=== PATIENT | female | born 1985 | race African-American/Black ===

== ENCOUNTER 2019-04-08 05:47 | Observation (INO) | payer OTHER ==
[~2019-04-08] VITALS: Ht 165.1 cm; Wt 88.0 kg
[2019-04-08] VITALS (12 sets, daily range): BP systolic 99–130; BP diastolic 49–79
[2019-04-08] MEDS ORDERED: SERT100T PO (06:20)
[2019-04-08] MEDS ORDERED: SUMA100T4 PO (06:23)
[2019-04-08] MEDS ORDERED: VALA500T9 PO (06:23)
[2019-04-08] MEDS ORDERED: ONDANSETRON PF 4 MG/2 ML VIAL. IV PRN (07:00)
[2019-04-08] MEDS ORDERED: PROCHLORPERAZINE 10 MG/2 ML VIAL. IV PRN (07:00)
[2019-04-08] MEDS ORDERED: HYDROmorphone 2 MG/ML VIAL IV PRN (07:00)
[2019-04-08] MEDS ORDERED: IV RINGERS,LACTATED 1000ML 1,000 ML IV SCH (07:00)
[2019-04-08] MEDS ORDERED: fentaNYL PF VIAL 100 MCG/2 ML VIAL IV PRN ×2 (07:00)
[2019-04-08] MEDS ORDERED: MORPHINE SULFATE 2 MG/ML VIAL. IV PRN ×3 (07:00→09:30)
[2019-04-08 07:09] LABS: BASO # 0.1 x10^3/uL (0.0-0.2); BASO % 1 % (0-3); EOS # 0.4 x10^3/uL (0.0-0.7); EOS % 4 % (0-3); HEMATOCRIT 39.8 % (36.0-47.0); LYMPH # 5.1 x10^3/uL (1.0-4.8); LYMPH % 43 % (24-48); MEAN CORPUSCULAR HEMOGLOBIN 29 pg (25-35); MEAN CORPUSCULAR HGB CONC 33 g/dL (31-37); MEAN CORPUSCULAR VOLUME 90 fL (79-100); MONO # 0.8 x10^3/uL (0.0-1.1); MONO % 7 % (0-9); NEUT # 5.4 x10^3/uL (1.8-7.7); NEUT % 46 % (31-73); PLATELET COUNT 403 x10^3/uL (140-400); RED BLOOD COUNT 4.44 x10^6/uL (3.50-5.40); RED CELL DISTRIBUTION WIDTH 15.2 % (11.5-14.5); WHITE BLOOD COUNT 11.8 x10^3/uL (4.0-11.0)
[2019-04-08] MEDS ORDERED: ONDANSETRON PF 4 MG/2 ML VIAL. ONE (07:17)
[2019-04-08] MEDS ORDERED: fentaNYL PF VIAL 100 MCG/2 ML VIAL ONE ×2 (07:17→08:27)
[2019-04-08] MEDS ORDERED: LIDOCAINE 2% PF 5 ML VIAL. ONE (07:17)
[2019-04-08] MEDS ORDERED: PROPOFOL 20 ML IV ONE (07:17)
[2019-04-08] MEDS ORDERED: DEXAMETHASONE SOD PHOS 4 MG/ML VIAL ONE (07:17)
[2019-04-08] MEDS ORDERED: MIDAZOLAM HCL/PF 2 MG/2 ML VIAL. ONE (07:18)
[2019-04-08] MEDS ORDERED: ROCURONIUM 50 MG/5 ML VIAL. ONE (07:18)
[2019-04-08 07:22] LABS: CALCIUM 8.8 mg/dL (8.5-10.1); CREATININE 0.7 mg/dL (0.6-1.0); GFR 115.2
[2019-04-08] MEDS ORDERED: ceFAZolin 2GM PREMIX 2 GM/50 ML BAG IV ONE (08:00)
[2019-04-08] MEDS ORDERED: GLYCOPYRROLATE 1 MG/5 ML VIAL. ONE (08:06)
[2019-04-08] MEDS ORDERED: SEVOFLURANE > 120 MINUTES. IH ONE (08:46)
[2019-04-08] MEDS ORDERED: PHENYLEPHRINE in 0.9% NACL PF 1 MG/10 ML SYRINGE. IV ONE (08:46)
[2019-04-08] MEDS ORDERED: NEOSTIGMINE METHYLSULFATE 5 MG/5 ML SYRINGE. ONE (09:04)
[2019-04-08] MEDS ORDERED: KETOROLAC 30 MG/ML VIAL. ONE (09:18)
[2019-04-08] MEDS ORDERED: IV NORMAL SALINE 1000ML BAG 1,000 ML IV SCH (09:22)
[2019-04-08] MEDS ORDERED: IV DEXTROSE 5 %-0.45 % NACL 1,000 ML IV SCH (09:22)
[2019-04-08] MEDS ORDERED: DEXTROSE 50% 25 GM / 50ML DISP.SYRIN. IV PRN (09:30)
[2019-04-08] MEDS ORDERED: oxyCODONE/APAP 5/325 1 TAB TABLET PO PRN (09:30)
[2019-04-08] MEDS ORDERED: KETOROLAC 15 MG/ML VIAL. IV PRN (09:30)
[2019-04-08] MEDS ORDERED: diphenhydrAMINE HCL 25 MG CAPSULE PO PRN (09:30)
[2019-04-08] MEDS ORDERED: 0.9 % SODIUM CHLORIDE 10 ML DISP.SYRIN. IV PRN (09:30)
[2019-04-08] MEDS ORDERED: NALOXONE 0.4 MG/ML VIAL. IV PRN (09:30)
[2019-04-08] MEDS ORDERED: diphenhydrAMINE 50 MG/ML VIAL IV PRN (09:30)
--- NOTE | 2019-04-08 10:13 | PDOC4 ---
OPERATIVE NOTE: PreOp Dx: 1. Menorrhagia, 2. Dysmenorrhea, 3. Endometriosis, 4. PMS/PMDD, 5. Tob use PostOp Dx: same Procedure: LAVH/BS Surgeon: Cristina Rodas Anesthesia: GETA EBL: 300cc Fluids: 1500 UOP: 200 (clear) Complications: none Findings: Nml appearing tubes and ovaries. Small anterior fibroid in midline of uterus Path: Uterus, cervix, tubes SANDY RODAS MD Apr 08, 2019 10:12
--- NOTE | 2019-04-08 11:00 | NUR ---
Pt to room 305 per bed from PACU. Pt drowsy but oriented X4. Frequent VS started and assessment completed. Friend at bedside.
--- NOTE | 2019-04-08 11:20 | OP ---
DATE OF SURGERY: 04/08/2019 PREOPERATIVE DIAGNOSES: 1. Menorrhagia. 2. Dysmenorrhea. 3. Endometriosis. 4. PMSS/PMDD. 5. Tobacco use. POSTOPERATIVE DIAGNOSES: 1. Menorrhagia. 2. Dysmenorrhea. 3. Endometriosis. 4. PMSS/PMDD. 5. Tobacco use. PROCEDURE: Laparoscopic-assisted vaginal hysterectomy with bilateral salpingectomy. SURGEON: Elio Rodas MD ANESTHESIA: General endotracheal intubation. ESTIMATED BLOOD LOSS: 300 mL. FLUIDS: 1500. URINE OUTPUT: 200 mL, clear. COMPLICATIONS: None. FINDINGS: Normal appearing tubes and ovaries. A small anterior fibroid in the midline of the uterus. SPECIMENS: Uterus, cervix and tubes. DESCRIPTION OF PROCEDURE: The patient was taken to the operating room where general endotracheal intubation was obtained without difficulty. The patient was prepped and draped in normal sterile fashion. Attention was first turned to the vagina where speculum was placed to visualize the cervix. The anterior lip of the cervix was then grasped with a single tooth tenaculum. An Tool uterine manipulator was then placed into the uterine cavity. At that point, the speculum was removed. A Vega catheter was then placed in the patient's bladder. Attention was then turned to the abdomen where a 5 mm skin incision was made in the infraumbilical fold. At that point, a Veress needle was introduced into the abdominal cavity. The abdominal cavity was then insufflated to 15 mmHg. Once that had been sufficiently insufflated, the Veress needle was removed and a 5 mm trocar was then placed. Intra-abdominal placement was confirmed with the laparoscope. At that point, survey of the pelvis revealed relatively normal anatomy with the exception of a small fibroid on the anterior of the uterus. At that point, a second trocar was then placed on the left approximately two-thirds between her ischial spine and the umbilicus, first by making a 5 mm skin incision followed by placing the trocar under direct visualization of the laparoscope, attention was then turned to the right side where a 5 mm skin incision was placed approximately two-thirds between the ischial spine and the umbilicus. Once this had been made, a 5 mm trocar was then placed under direct visualization of the laparoscope. Attention was first turned to the left where the left tube was grasped at the level of the fimbria. The tube was then from the ovary with the LigaSure device until the level of the uterus, once the tube was from the ovary, LigaSure device was used to cut through the round ligament. The LigaSure device was then used to serially coagulate and cut the uterine pedicles to the level of the uterine artery. At that point, the peritoneum was undermined to allow for the creation of a bladder flap. The bladder flap was then brought to the midline. Additional bites were then taken of the uterine vessels with the LigaSure device. Attention was then turned to the right where again the tube was then grasped and followed out to the fimbria. The right tube was then from the ovary with the LigaSure device. Once this had been performed, the round ligament was then cut using the LigaSure device. The uterine pedicles on the right were then serially coagulated and cut with the LigaSure device to the level of the uterine arteries. At that point, the peritoneum was undermined to complete the bladder flap. Once this had been accomplished, a few additional bites were taken of the uterine vessels. Once good hemostasis was noted, all instruments were removed and attention was then turned to the vagina where the cervix was circumferentially cut with the Bovie device. At that point, the pubovesicocervical fascia was then dissected from the bladder with the Metzenbaum scissors. Once the anterior cul-de-sac had been entered, attention was then turned to the posterior cul-de-sac where Walker scissors were used to enter the peritoneum posteriorly. At that point, a Antonette clamp was used to grasp the left uterosacral ligament. This was then cut and tagged with 0 Vicryl. This was performed on the right side where the uterosacral ligament was then grasped with a Antonette clamp, cut and tagged. Once this had been performed, the uterus was serially clamped, cut and tied until all the pedicles were free. The uterus was then delivered. Once the uterus was delivered, good hemostasis was noted. The vaginal cuff was then closed by first making a [id number]-rd-[id number] stitch on the left lateral edge with the second pass including the left uterosacral ligament. This was tagged. Attention was then turned to the right side where a cdxbkl-vx-atkwr stitch was then placed at the lateral edge again including the right uterosacral ligament on the second pass. Two additional dikyfq-xi-eexsh stitches were used to close the remainder of the cuff. The cuff was irrigated. Good hemostasis was noted. All the stitches were cut. Attention was then returned to the abdomen once again where the abdomen was insufflated once again, survey of the vaginal cuff revealed good hemostasis. The ureters were then observed to be peristalsing. The pelvis was then irrigated. All instruments were removed as well as the trocar. The laparoscopic incisions were closed with 4-0 Monocryl. At that point, the patient tolerated the procedure well and was taken to the recovery room in stable condition. Sponges, laps and needles were correct x 3. ELIO RODAS MD DR: PURA/luigi JOB#: [id number] / [id number]
[2019-04-08] MEDS: oxyCODONE/APAP 5/325 1 TAB TABLET PO PRN ×2 (13:41→14:37)
[2019-04-08] MEDS: IBUPROFEN 200 MG TABLET. PO PRN (20:08)
[2019-04-08] MEDS: DOCUSATE SODIUM 100 MG CAPSULE. PO SCH (21:25)
[2019-04-09 02:25] VITALS: BP 100/57
[2019-04-09] MEDS: IBUPROFEN 200 MG TABLET. PO PRN (06:17)
[2019-04-09] MEDS: oxyCODONE/APAP 5/325 1 TAB TABLET PO PRN ×2 (06:17→10:38)
[2019-04-09 06:20] VITALS: BP 121/65
[2019-04-09 07:40] LABS: BASO % 0 % (0-3); EOS % 0 % (0-3); HEMATOCRIT 34.4 % (36.0-47.0); HEMOGLOBIN 11.4 g/dL (12.0-15.5); LYMPH # 3.7 x10^3/uL (1.0-4.8); LYMPH % 23 % (24-48); MEAN CORPUSCULAR HEMOGLOBIN 30 pg (25-35); MEAN CORPUSCULAR HGB CONC 33 g/dL (31-37); MEAN CORPUSCULAR VOLUME 89 fL (79-100); MONO # 1.3 x10^3/uL (0.0-1.1); MONO % 8 % (0-9); NEUT # 11.5 x10^3/uL (1.8-7.7); NEUT % 69 % (31-73); PLATELET COUNT 371 x10^3/uL (140-400); RED BLOOD COUNT 3.87 x10^6/uL (3.50-5.40); RED CELL DISTRIBUTION WIDTH 15.4 % (11.5-14.5); WHITE BLOOD COUNT 16.5 x10^3/uL (4.0-11.0)
[2019-04-09 08:06] LABS: CALCIUM 8.3 mg/dL (8.5-10.1); CREATININE 0.6 mg/dL (0.6-1.0); GFR 137.7; POTASSIUM 4.2 mmol/L (3.5-5.1)
--- NOTE | 2019-04-09 09:11 | DISCH ---
DISCHARGE INSTRUCTIONS Condition on Discharge Condition on Discharge: Stable Activity After Discharge Activity Instructions for Disc: Resume previous activity (No lifting greater than 20lbs. Pelvic rest for 6 weeks. No driving on narcotics. Call if: f/c, N/V, abd pain or any additional questions or concerns.) Follow-Up Follow up with: Dr. Rodas on 04/17/19 at 10:00 am SANDY RODAS MD Apr 09, 2019 09:11
[2019-04-09] MEDS ORDERED: OXYC1TAB15 PO (09:12)
[2019-04-09] MEDS ORDERED: IBUP-1060 PO (09:12)
[2019-04-09] MEDS ORDERED: DOCU-109 PO (09:12)
[2019-04-09] MEDS: DOCUSATE SODIUM 100 MG CAPSULE. PO SCH (09:26)
--- NOTE | 2019-04-09 09:30 | PDOC ---
PROGRESS NOTES Subjective Subjective Pt with good pain control. Aster PO. Voiding. Objective Objective Vital Signs Date Time Temp Pulse Resp B/P (MAP) Pulse Ox O2 Delivery O2 Flow Rate FiO2 04/09/19 07:20 18 Room Air 04/09/19 06:20 98.0 62 121/65 (83) 100 98.0 Intake and Output 04/09/19 07:00 Intake Total 3095 ml Output Total 1500 ml Balance 1595 ml Intake Oral 1040 ml IV Total 1550 ml Other 505 ml Output Urine Total 1200 ml Estimated Blood Loss 300 ml Physical Exam Physical Exam CTAB RRR S/NT/ND Inc: dressing dry no C/C/E Assessment Assessment A/P 33y POD #1 s/p LAVH/BS 1.) PO - doing well, path pending 2.) Hgb 13.0 -> 11.4 3.) H/o IBS 4.) Tob use - discussed cessation 5.) D/c home Comment Review of Relevant I have reviewed the following items felix (where applicable) has been applied. Labs Laboratory Tests Test 04/08/19 06:15 04/08/19 06:19 04/09/19 07:00 White Blood Count 11.8 x10^3/uL (4.0-11.0) 16.5 x10^3/uL (4.0-11.0) Red Blood Count 4.44 x10^6/uL (3.50-5.40) 3.87 x10^6/uL (3.50-5.40) Hemoglobin 13.0 g/dL (12.0-15.5) 11.4 g/dL (12.0-15.5) Hematocrit 39.8 % (36.0-47.0) 34.4 % (36.0-47.0) Mean Corpuscular Volume 90 fL (79-100) 89 fL (79-100) Mean Corpuscular Hemoglobin 29 pg (25-35) 30 pg (25-35) Mean Corpuscular Hemoglobin Concent 33 g/dL (31-37) 33 g/dL (31-37) Red Cell Distribution Width 15.2 % (11.5-14.5) 15.4 % (11.5-14.5) Platelet Count 403 x10^3/uL (140-400) 371 x10^3/uL (140-400) Neutrophils (%) (Auto) 46 % (31-73) 69 % (31-73) Lymphocytes (%) (Auto) 43 % (24-48) 23 % (24-48) Monocytes (%) (Auto) 7 % (0-9) 8 % (0-9) Eosinophils (%) (Auto) 4 % (0-3) 0 % (0-3) Basophils (%) (Auto) 1 % (0-3) 0 % (0-3) Neutrophils # (Auto) 5.4 x10^3/uL (1.8-7.7) 11.5 x10^3/uL (1.8-7.7) Lymphocytes # (Auto) 5.1 x10^3/uL (1.0-4.8) 3.7 x10^3/uL (1.0-4.8) Monocytes # (Auto) 0.8 x10^3/uL (0.0-1.1) 1.3 x10^3/uL (0.0-1.1) Eosinophils # (Auto) 0.4 x10^3/uL (0.0-0.7) 0.0 x10^3/uL (0.0-0.7) Basophils # (Auto) 0.1 x10^3/uL (0.0-0.2) 0.0 x10^3/uL (0.0-0.2) Sodium Level 143 mmol/L (136-145) 143 mmol/L (136-145) Potassium Level 4.0 mmol/L (3.5-5.1) 4.2 mmol/L (3.5-5.1) Chloride Level 106 mmol/L (98-107) 106 mmol/L (98-107) Carbon Dioxide Level 27 mmol/L (21-32) 29 mmol/L (21-32) Anion Gap 10 (6-14) 8 (6-14) Blood Urea Nitrogen 13 mg/dL (7-20) 5 mg/dL (7-20) Creatinine 0.7 mg/dL (0.6-1.0) 0.6 mg/dL (0.6-1.0) Estimated GFR (Cockcroft-Gault) 115.2 137.7 Glucose Level 100 mg/dL (70-99) 117 mg/dL (70-99) Calcium Level 8.8 mg/dL (8.5-10.1) 8.3 mg/dL (8.5-10.1) Bedside Urine HCG, Qualitative Hcg negative (Negative) Laboratory Tests Test 04/09/19 07:00 White Blood Count 16.5 x10^3/uL (4.0-11.0) Red Blood Count 3.87 x10^6/uL (3.50-5.40) Hemoglobin 11.4 g/dL (12.0-15.5) Hematocrit 34.4 % (36.0-47.0) Mean Corpuscular Volume 89 fL (79-100) Mean Corpuscular Hemoglobin 30 pg (25-35) Mean Corpuscular Hemoglobin Concent 33 g/dL (31-37) Red Cell Distribution Width 15.4 % (11.5-14.5) Platelet Count 371 x10^3/uL (140-400) Neutrophils (%) (Auto) 69 % (31-73) Lymphocytes (%) (Auto) 23 % (24-48) Monocytes (%) (Auto) 8 % (0-9) Eosinophils (%) (Auto) 0 % (0-3) Basophils (%) (Auto) 0 % (0-3) Neutrophils # (Auto) 11.5 x10^3/uL (1.8-7.7) Lymphocytes # (Auto) 3.7 x10^3/uL (1.0-4.8) Monocytes # (Auto) 1.3 x10^3/uL (0.0-1.1) Eosinophils # (Auto) 0.0 x10^3/uL (0.0-0.7) Basophils # (Auto) 0.0 x10^3/uL (0.0-0.2) Sodium Level 143 mmol/L (136-145) Potassium Level 4.2 mmol/L (3.5-5.1) Chloride Level 106 mmol/L (98-107) Carbon Dioxide Level 29 mmol/L (21-32) Anion Gap 8 (6-14) Blood Urea Nitrogen 5 mg/dL (7-20) Creatinine 0.6 mg/dL (0.6-1.0) Estimated GFR (Cockcroft-Gault) 137.7 Glucose Level 117 mg/dL (70-99) Calcium Level 8.3 mg/dL (8.5-10.1) Medications Current Medications Ondansetron HCl (Zofran) 4 mg PRN Q6HRS PRN IV NAUSEA/VOMITING; Start 04/08/19 at 07:00; Stop 04/08/19 at 20:00; Status DC Fentanyl Citrate (Fentanyl 2ml Vial) 25 mcg PRN Q5MIN PRN IV MILD PAIN 1-3; Start 04/08/19 at 07:00; Stop 04/08/19 at 20:00; Status DC Fentanyl Citrate (Fentanyl 2ml Vial) 50 mcg PRN Q5MIN PRN IV MODERATE TO SEVERE PAIN; Start 04/08/19 at 07:00; Stop 04/08/19 at 20:00; Status DC Morphine Sulfate (Morphine Sulfate) 1 mg PRN Q10MIN PRN IV SEVERE PAIN 7-10; Start 04/08/19 at 07:00; Stop 04/08/19 at 20:00; Status DC Ringer's Solution 1,000 ml @ 30 mls/hr Q24H IV Last administered on 04/08/19at 06:40; Start 04/08/19 at 07:00; Stop 04/08/19 at 18:59; Status DC Hydromorphone HCl (Dilaudid) 0.5 mg PRN Q10MIN PRN IV SEV PAIN, Second choice; Start 04/08/19 at 07:00; Stop 04/08/19 at 20:00; Status DC Prochlorperazine Edisylate (Compazine) 5 mg PACU PRN PRN IV NAUSEA, MRX1; Start 04/08/19 at 07:00; Stop 04/08/19 at 20:00; Status DC Cefazolin Sodium/ Dextrose 50 ml @ 100 mls/hr 1X PREOP PRN IV PRIOR TO PROCEDURE; Start 04/08/19 at 06:00; Stop 04/08/19 at 18:00; Status DC Propofol 20 ml @ As Directed STK-MED ONCE IV ; Start 04/08/19 at 07:17; Stop 04/08/19 at 07:17; Status DC Lidocaine HCl (Lidocaine Pf 2% Vial) 5 ml STK-MED ONCE .ROUTE ; Start 04/08/19 at 07:17; Stop 04/08/19 at 07:17; Status DC Ondansetron HCl (Zofran) 4 mg STK-MED ONCE .ROUTE ; Start 04/08/19 at 07:17; Stop 04/08/19 at 07:17; Status DC Dexamethasone Sodium Phosphate (Decadron) 4 mg STK-MED ONCE .ROUTE ; Start 04/08/19 at 07:17; Stop 04/08/19 at 07:17; Status DC Fentanyl Citrate (Fentanyl 2ml Vial) 100 mcg STK-MED ONCE .ROUTE ; Start 04/08/19 at 07:17; Stop 04/08/19 at 07:18; Status DC Midazolam HCl (Versed) 2 mg STK-MED ONCE .ROUTE ; Start 04/08/19 at 07:18; Stop 04/08/19 at 07:18; Status DC Rocuronium Anatone (Zemuron) 50 mg STK-MED ONCE .ROUTE ; Start 04/08/19 at 07:18; Stop 04/08/19 at 07:19; Status DC Glycopyrrolate (Robinul) 1 mg STK-MED ONCE .ROUTE ; Start 04/08/19 at 08:06; Stop 04/08/19 at 08:06; Status DC Fentanyl Citrate (Fentanyl 2ml Vial) 100 mcg STK-MED ONCE .ROUTE ; Start 04/08/19 at 08:27; Stop 04/08/19 at 08:27; Status DC Phenylephrine HCl (PHENYLEPHRINE in 0.9% NACL PF) 1 mg STK-MED ONCE IV ; Start 04/08/19 at 08:46; Stop 04/08/19 at 08:46; Status DC Sevoflurane (Ultane) 90 ml STK-MED ONCE IH ; Start 04/08/19 at 08:46; Stop 04/08/19 at 08:47; Status DC Neostigmine Anatone (Neostigmine Methylsulfate) 5 mg STK-MED ONCE .ROUTE ; Start 04/08/19 at 09:04; Stop 04/08/19 at 09:04; Status DC Ketorolac Tromethamine (Toradol 30mg Vial) 30 mg STK-MED ONCE .ROUTE ; Start 04/08/19 at 09:18; Stop 04/08/19 at 09:18; Status DC Diphenhydramine HCl (Benadryl) 25 mg PRN Q6HRS PRN PO ITCHING; Start 04/08/19 at 09:30 Diphenhydramine HCl (Benadryl) 25 mg PRN Q6HRS PRN IV ITCHING; Start 04/08/19 at 09:30 Sodium Chloride (Normal Saline Flush) 3 ml QSHIFT PRN IV AFTER MEDS AND BLOOD DRAWS; Start 04/08/19 at 09:30 Dextrose/Sodium Chloride 1,000 ml @ 100 mls/hr Q10H IV Last administered on 04/08/19at 14:46; Start 04/08/19 at 09:22 Dextrose (Dextrose 50%-Water Syringe) 12.5 gm PRN Q15MIN PRN IV SEE COMMENTS; Start 04/08/19 at 09:30 Oxycodone/ Acetaminophen (Percocet 5/325) 1 tab PRN Q4HRS PRN PO MILD PAIN, 1ST CHOICE Last administered on 04/09/19at 06:17; Start 04/08/19 at 09:30 Oxycodone/ Acetaminophen (Percocet 5/325) 2 tab PRN Q4HRS PRN PO MODERATE PAIN, SEVERE PAIN Last administered on 04/08/19at 20:08; Start 04/08/19 at 09:30 Ketorolac Tromethamine (Toradol 15mg Vial) 15 mg PRN Q6HRS PRN IV PAIN Last administered on 04/08/19at 11:30; Start 04/08/19 at 09:30; Stop 04/13/19 at 09:29 Ibuprofen (Motrin) 600 mg PRN Q8HRS PRN PO INFLAMMATION Last administered on 04/09/19at 06:17; Start 04/08/19 at 09:30 Naloxone HCl (Narcan) 0.4 mg PRN Q2MIN PRN IV SEE INSTRUCTIONS; Start 04/08/19 at 09:30 Sodium Chloride 1,000 ml @ 25 mls/hr Q24H IV ; Start 04/08/19 at 09:22 Morphine Sulfate (Morphine Sulfate) 1 mg PRN Q1HR PRN IV PAIN; Start 04/08/19 at 09:30 Morphine Sulfate (Morphine Sulfate) 2 mg PRN Q1HR PRN IV PAIN; Start 04/08/19 at 09:30 Docusate Sodium (Colace) 100 mg BID PO Last administered on 04/08/19at 21:25; Start 04/08/19 at 21:00 Active Scripts Active Percocet 5-325 Mg Tablet (Oxycodone/Acetaminophen) 1 Each Tablet 1 Tab PO PRN Q6HRS PRN Ibuprofen 800 Mg Tablet 800 Mg PO PRN Q6HRS PRN Colace (Docusate Sodium) 100 Mg Capsule 100 Mg PO PRN BID PRN Reported Valacyclovir (Valacyclovir Hcl) 500 Mg Tablet 1 Tab PO DAILY Sumatriptan Succinate 100 Mg Tablet 1 Tab PO UD Zoloft (Sertraline Hcl) 100 Mg Tablet 1 Tab PO DAILY Vitals/I & O Vital Sign - Last 24 Hours 04/08/19 04/08/19 04/08/19 04/08/19 09:36 09:50 10:00 10:15 Temp 97.7 97.7 97.7 97.7 97.7 97.7 97.7 97.7 Pulse 74 68 72 70 Resp 16 16 16 16 B/P (MAP) 141/82 109/55 111/55 110/60 Pulse Ox 99 96 96 95 O2 Delivery Room Air Room Air Room Air Room Air 04/08/19 04/08/19 04/08/19 04/08/19 11:00 11:15 11:30 11:45 Temp 98.0 98.0 Pulse 73 75 72 73 Resp 16 16 18 18 B/P (MAP) 104/55 (71) 99/58 (72) 106/53 (70) 109/58 (75) Pulse Ox 100 100 100 100 O2 Delivery Room Air Room Air Room Air Room Air 04/08/19 04/08/19 04/08/19 04/08/19 12:00 12:30 13:00 13:30 Pulse 74 73 74 80 Resp 18 18 18 18 B/P (MAP) 108/59 (75) 107/56 (73) 104/56 (72) 114/56 (75) Pulse Ox 99 99 96 98 O2 Delivery Room Air Room Air Room Air Room Air 04/08/19 04/08/19 04/08/19 04/08/19 13:41 14:00 14:30 14:37 Pulse 81 80 Resp 18 18 18 18 B/P (MAP) 130/79 (96) 119/70 (86) Pulse Ox 98 100 O2 Delivery Room Air Room Air Room Air Room Air 04/08/19 04/08/19 04/08/19 04/08/19 14:40 15:40 18:00 20:08 Temp 98.2 98.2 Pulse 83 Resp 16 18 18 18 B/P (MAP) 104/51 (68) Pulse Ox 100 O2 Delivery Room Air Room Air Room Air 04/08/19 04/08/19 04/09/19 04/09/19 21:05 21:25 02:25 06:20 Temp 98.2 98.1 98.0 98.2 98.1 98.0 Pulse 81 69 62 Resp 18 18 18 18 B/P (MAP) 101/49 (66) 100/57 (71) 121/65 (83) Pulse Ox 99 100 100 O2 Delivery Room Air Room Air Room Air 04/09/19 07:20 Resp 18 O2 Delivery Room Air Intake and Output 04/08/19 04/08/19 04/09/19 15:00 23:00 07:00 Intake Total 1790 ml 1305 ml Output Total 500 ml 1000 ml Balance 1290 ml 305 ml SANDY RODAS MD Apr 09, 2019 09:30
--- NOTE | 2019-04-09 10:58 | DS ---
DATE OF DISCHARGE: 04/09/2019 ADMISSION DIAGNOSES: 1. Menorrhagia. 2. Dysmenorrhea. 3. Endometriosis. 4. Premenstrual syndrome/premenstrual dysphoric disorder. 5. Tobacco use. DISCHARGE DIAGNOSES: 1. Menorrhagia. 2. Dysmenorrhea. 3. Endometriosis. 4. Premenstrual syndrome/premenstrual dysphoric disorder. 5. Tobacco use. PROCEDURES: Laparoscopic-assisted vaginal hysterectomy with bilateral salpingectomy. BRIEF HOSPITAL COURSE: The patient is a 33-year-old 4, para 1-0-3-1, who initially presented to the office in January for hysterectomy consult. The patient's main concerns were related to her cycles being painful and too heavy. The patient also reported a diagnosis of endometriosis. The patient underwent evaluation and ultimately decided on definitive surgery. The patient underwent LAVH with bilateral salpingectomy on 04/08/2019. See operative note for full detail. By postop day #1, the patient was meeting all discharge criteria and was subsequently discharged home. Of note, the patient's hemoglobin preoperatively was 13.0 and dropped postoperatively to 11.4. Otherwise, the patient had no issues. DISCHARGE INSTRUCTIONS: The patient was told not to lift anything greater than 20 pounds, to have pelvic rest for 6 weeks, not to drive on narcotics. CALL IF: The patient is to call if she has fevers, chills, nausea, vomiting, abdominal pain or any additional questions or concerns. FOLLOWUP APPOINTMENT: The patient is to follow up with Dr. Rodas on 04/17/2019 at 10:00 a.m. for a postop appointment. DISCHARGE MEDICATIONS: The patient is given prescription for Percocet 5 10 pills, Motrin 800 mg 30 pills and Colace 100 mg 30 pills. SANDY RODAS MD DR: PURA/luigi JOB#: [id number] / [id number]
[2019-04-09 13:40] VITALS: BP 119/79
--- NOTE | 2019-04-09 14:05 | NUR ---
Discharge and follow up instructions reviewed with pt and S/O. Rx X3 and instructions given to pt. Pt denied any questions or complaints at time of D/C. Pt taken out of the hospital per w/c.
--- NOTE | 2019-04-10 17:06 | PATHOLOGY ---
[facility] Accession Number: [id number] . 01 Material submitted: . uterus - CERVIX,UTERUS,BILATERAL TUBES . 01 Clinical history: . Menorrhagia . 02 Diagnosis: Uterus and attached bilateral fallopian tubes, hysterectomy with bilateral salpingectomy: - Leiomyomas, uterine corpus, subserosal and intramural, measuring up to 0.6 cm in greatest dimension. - Mild chronic cervicitis with focal squamous metaplasia. - Nabothian cysts, small. - Secretory endometrium. - Adenomyosis, uterine corpus, subbasal, focal. - Congestion of bilateral fallopian tubes. (SONNYM:cait; 04/10/2019) R 04/10/2019 1652 Local . 02 Comment: There is no atypia or evidence of malignancy. (JPM:cait; 04/10/2019) . 02 Electronically signed: . Farzad Skelton MD, Pathologist NPI- [id number] . 01 Gross description: . The specimen is received in formalin, labeled "Betsy Petersen, cervix uterus bilateral tubes" and consists of a 135 g uterus with attached cervix measuring 9.5 x 5.8 x 4.5 cm. Attached are the bilateral fimbriated fallopian tubes measuring 6.0 cm in length and up to 0.7 cm in diameter (right) and 5.8 cm in length and up to 0.6 cm in diameter (left). The uterine serosa is pink-tyler smooth shiny with 3 sub-serosal posterior nodules measuring up to 0.3 cm. The slitlike 1.6 cm cervical os is surrounded by focally hemorrhagic glistening pink-tyler ectocervical mucosa. Nabothian cysts are present. It is bivalved revealing a corrugated endocervical canal measuring 4.0 cm in length. The endometrial cavity is triangular measuring 4.8 cm in length and 3.9 cm in width which is lined by a hemorrhagic pink-red endometrium measuring 0.1 cm. The myometrium is pink-tyler measuring up to 2.6 cm with 2 additional intramural nodules measuring 0.4 cm and 0.6 cm. Both fallopian tubes are purple smooth shiny with sectioning revealing a well-defined lumen and no gross lesions. Manager [employer] sections are submitted as follows: . A1: Anterior cervix A2: Posterior cervix A3: Anterior endomyometrium A4: Posterior endomyometrium A5: Subserosal nodules A6: Intramural nodules A7: Right fallopian tube A8: Left fallopian tube (SDY; 04/09/2019) SYU/SYU 04/10/2019 [facility]2 Local . 02 Pathologist provided ICD-10: D25.2, D25.1, N72, N88.8, N80.0 . 02 CPT . 480228 Specimen Comment: A courtesy copy of this report has been sent to [phone], [phone] Specimen Comment: [id number] Specimen Comment: Report sent to / DR LARA Performed at: 01 [facility] [address], [place] [id number] MD Clayton Mendez MD Phone: [phone] Performed at: 02 [facility] [address] [place], [place] [id number] MD Farzad Skelton MD Phone: [phone]
== END 2019-04-09 14:05 | disposition home or self-care (01) ==
LOC: SURG 05:47 → 3 NORTH 09:22
PROVIDERS: ADMIT Obstetrics & Gynecology; ATTEND Obstetrics & Gynecology
DX: N92.0 Excessive and frequent menstruation with regular cycle (principal); N94.6 Dysmenorrhea, unspecified; N80.9 Endometriosis, unspecified; F17.200 Nicotine dependence, unspecified, uncomplicated
CPT/HCPCS: 36415; 58552; 80048; 81025; 85025; 86850; 86900; 86901; 96374; A7015; G0378; G0379; J0696; J1100; J1885; J2001; J2250; J2370; J2405; J2704; J2710; J3010; J3490; J7030; J7042; J7120